=== PATIENT | female | born 1965 | race Caucasian/White ===

== ENCOUNTER 2019-04-15 20:44 | Emergency (ER) | payer BC, MEDICAID, MEDICARE ==
[~2019-04-15] VITALS: Ht 170.2 cm; Wt 49.9 kg
[~2019-04-15 20:44] MED LIST: CEPHALEXIN500 MG ORAL
--- NOTE | 2019-04-15 20:55 | NUR ---
NORMA is here now.
[2019-04-15 21:05] VITALS: BP 119/78
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
[2019-04-15] MEDS ORDERED: HYDROcodone/Acetamin 5/325 tab ORAL ONE (21:30)
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
[2019-04-15] MEDS ORDERED: OXYCODONE HCL20 M1 ORAL (21:49)
--- NOTE | 2019-04-15 22:11 | NUR ---
ED Nurse Note: Long arm posterior splin was placed by Hai, patient tolerated pocedure well.
[2019-04-15 22:20] VITALS: BP 119/78
--- NOTE | 2019-04-15 22:21 | NUR ---
ED Nurse Note: Pt cleared by health care Provider for discharge. DC instructions/prescription was given and explained to pt and verbalized understanding of teachings. All medical deviecs such as ID band removed. Pt is AAO x4, ambulatory and left with all personal belongings.
--- NOTE | 2019-04-16 13:29 | Diagnostic Imaging Report ---
Indication: Left elbow pain Findings: 3 views of the left elbow were obtained. No acute fractures, malalignment, erosions or periostitis are identified. Soft tissues are unremarkable. Impression: No acute injury
== END 2019-04-15 22:20 | disposition home or self-care (01) ==
LOC: EDUNIT# 20:44 → EDBD 20:44 → EMR 22:20
DX: S42.402A Unspecified fracture of lower end of left humerus, initial encounter for closed fracture (principal); S00.83XA Contusion of other part of head, initial encounter; D68.51 Activated protein C resistance; J45.909 Unspecified asthma, uncomplicated; G89.29 Other chronic pain; F17.200 Nicotine dependence, unspecified, uncomplicated; Z85.00 Personal history of malignant neoplasm of unspecified digestive organ; Z86.711 Personal history of pulmonary embolism; Z79.01 Long term (current) use of anticoagulants; Y00.XXXA Assault by blunt object, initial encounter; Y92.9 Unspecified place or not applicable
CPT/HCPCS: 29105; 99283